=== PATIENT | male | born 1995 | race Caucasian/White ===

== ENCOUNTER 2017-01-21 09:22 | Emergency (ER) | payer OTHER ==
[~2017-01-21] VITALS: Ht 167.6 cm; Wt 117.5 kg
[2017-01-21 09:26] VITALS: Ht 167.6 cm; Wt 117.5 kg
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
[2017-01-21] MEDS ORDERED: ACET500C5 PO (11:36)
[2017-01-21] MEDS ORDERED: ONDA8TAB14 PO (11:37)
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
[2017-01-21 12:10] VITALS: BP 138/72; PULSE 77; RESP 18; TEMP 98.6
== END 2017-01-21 12:10 | disposition home or self-care (01) ==
LOC: FTE 09:22
DX: S09.90XA Unspecified injury of head, initial encounter (principal); V43.92XA Unspecified car occupant injured in collision with other type car in traffic accident, initial encounter
CPT/HCPCS: 70450; 72125; Z7502